=== PATIENT | male | born 1995 | race Two or more races ===

== ENCOUNTER 2017-06-23 15:32 | Emergency (ER) | payer SELFPAY ==
[~2017-06-23] VITALS: Ht 190.5 cm; Wt 84.8 kg
[2017-06-23 15:37] VITALS: BP 140/80
== END 2017-06-23 15:54 | disposition home or self-care (01) ==
LOC: ER 15:37
DX: S60.412A Abrasion of right middle finger, initial encounter (principal); S61.232A Puncture wound without foreign body of right middle finger without damage to nail, initial encounter; W01.0XXA Fall on same level from slipping, tripping and stumbling without subsequent striking against object, initial encounter; Y92.89 Other specified places as the place of occurrence of the external cause; Y93.89 Activity, other specified; Y99.8 Other external cause status
CPT/HCPCS: 99283; A4606; A6402; Z7610